=== PATIENT | male | born 2000 | race Caucasian/White ===

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

== ENCOUNTER 2019-06-14 13:24 | Emergency (ER) | payer MEDICAID ==
[~2019-06-14] VITALS: Ht 175.3 cm; Wt 65.5 kg
[2019-06-14 13:29] VITALS: BP 94/63
== END 2019-06-14 15:00 | disposition home or self-care (01) ==
LOC: ED 14:00
DX: J06.9 Acute upper respiratory infection, unspecified (principal); R06.00 Dyspnea, unspecified
CPT/HCPCS: 36415; 71046; 87806; 93005; 99284; G0475

== ENCOUNTER 2019-09-11 02:57 | Emergency (ER) | payer MEDICAID ==
[~2019-09-11] VITALS: Ht 175.3 cm; Wt 58.9 kg
[2019-09-11 03:00] VITALS: BP 125/73
== END 2019-09-11 04:00 | disposition home or self-care (01) ==
LOC: ED 03:17
DX: J20.9 Acute bronchitis, unspecified (principal); F17.210 Nicotine dependence, cigarettes, uncomplicated; R94.31 Abnormal electrocardiogram [ECG] [EKG]; R00.0 Tachycardia, unspecified
CPT/HCPCS: 71045; 93005; 99406

== ENCOUNTER 2019-10-13 14:14 | Emergency (ER) | payer MEDICAID ==
[~2019-10-13] VITALS: Ht 170.2 cm; Wt 70.0 kg
[2019-10-13] MEDS ORDERED: SODIUM CHLORIDE 0.9% 1,000ML IVBOLUS ONE (14:30)
[2019-10-13] MEDS ORDERED: NALOXONE 0.4 MG/ML, 1ML IVPush PRN (14:30)
[2019-10-13 14:47] LABS: BASOPHILS # (AUTO) 0.05 x10^3/uL (0-0.3); BASOPHILS % (AUTO) 1 % (0-1); EOSINOPHILS # (AUTO) 0.17 x10^3/uL (0-0.8); EOSINOPHILS % (AUTO) 2 % (1-7); LYMPHOCYTES # (AUTO) 3.87 x10^3/uL (1-6.1); LYMPHOCYTES % (AUTO) 50 % (22-44); MD NO; MEAN CORPUSCULAR HEMOGLOBIN 27.3 pg (27.5-34.5); MEAN CORPUSCULAR HGB CONC 33.1 g/dL (33.2-36.2); MEAN CORPUSCULAR VOLUME 82.3 fL (81-97); MEAN PLATELET VOLUME 8.2 fL (7.4-10.4); MONOCYTES % (AUTO) 9 % (2-9); NEUTROPHILS # (AUTO) 2.96 x10^3/uL (1.8-8.0); NEUTROPHILS % (AUTO) 38 % (42-75); PLATELET COUNT 245 x10^3/uL (130-400); RED CELL DISTRIBUTION WIDTH 15.5 % (9.4-14.8)
[2019-10-13 14:55] LABS: ALBUMIN 3.7 g/dL (3.4-5.0); ANION GAP 4 mmol/L (5-15); CALCIUM 8.6 mg/dL (8.5-10.1); CHLORIDE 109 mmol/L (98-107)
--- NOTE | 2019-10-13 15:02 | NUR ---
PT. WAS A STRAIGHT BACK FROM THE LOBBY. PT.'S FRIEND MARNIE BROUGHT HIM TO THE ER FOR EVALUATION OF BEING UNRESPONSIVE AND TAKING AN UNKNOWN AMOUNT OF AN UNKNOWN DRUG. PT. IS AROUSABLE TO TACTILE STIMULI AND FOLLOWS VERBAL COMMANDS. IV ACCESS ESTABLISHED AND THE PT. WAS PLACED ON THE CASTING MACHINE SET UP OPERATOR. PT.'S FRIEND SHOWED THE ED STAFF TEXT MESSAGES FROM THE PT. STATING THAT HE WANTED TO OD AND KILL HIMSELF. PCXR WAS DONE. PT. WAS UNDRESSED AND HIS BELONGINGS WERE SECURED. YAKOV CIFUENTES ASKED SECURITY TO LOCK UP THE PT.'S WALLET SECONDARY TO HIM HAVING 9 CREDIT CARDS PRESENT AND THEY REFUSED. THE ED POSTAL SUPERINTENDENT VIANCA WAS NOTIFIED. PT. IS PINK,WARM AND DRY. LUNGS ARE CTA. MM ARE MOIST WITH PULSES +2 THROUGHOUT. PT.'S ABD. IS SOFT AND FLAT WITH BS + X 4 QUADS. NO TRACK ALMONTE WERE FOUND ON THE PT. IV ACCESS WAS ESTABLISHED. PT.'S GCS IS 13 AND HE IS AROUSABLE AND FOLLOWS COMMANDS WHEN TOLD TO DO SO. REPORT TO LUNCH YAKOV KOTHARI. ALL SAFETY MEASURES ARE MAINTAINED, RN AT THE BEDSIDE AND SIDERAILS REMAIN UP X 2.
[2019-10-13 15:03] LABS: ALANINE AMINOTRANSFERASE 21 U/L (12-78); ALKALINE PHOSPHATASE 72 U/L (45-117); BILIRUBIN,TOTAL 0.8 mg/dL (0.2-1.0); CREATININE 0.85 mg/dL (0.7-1.3); TOTAL PROTEIN 7.3 g/dL (6.4-8.2)
[2019-10-13 15:04] LABS: SALICYLATE LEVEL < 1.7 mg/dL (2.8-20.0)
--- NOTE | 2019-10-13 15:14 | NUR ---
BREAK RN: LORENZOAR RPT REC'D FROM YAKOV TAVARES. PT REPOSITIONED AND CLEAN LINNENS AND PILLOW PLACED. PT ARROUSES AND IS TEARFUL, REPEATING "I'M SO SORRY, I'M SO SORRY" PT DOES NOT ANSWER ANY QUESTIONS THAT THIS RN ASKS. RN REASSURED PT THAT HE WAS SAFE IN THE HOSPITAL AND ENCOURAGED PT TO REST. PT REPOSITIONS SELF AND RTNS TO SLEEPING.
--- NOTE | 2019-10-13 16:05 | NUR ---
PT. REMAINS MONITORED AND IS RESTING WITHOUT CONCERNS. SITTER AT THE BEDSIDE.
--- NOTE | 2019-10-13 16:15 | NUR ---
PT. IS NOW A & O X 4 AND STATES HE TOOK 4 PERCOCET. PT. IS DENYING SA AT THIS TIME. PT. WAS UPDATED ON THE PLAN OF CARE.
--- NOTE | 2019-10-13 16:26 | NUR ---
RECEIVED REPORT FROM ANUSHA.
--- NOTE | 2019-10-13 16:28 | NUR ---
PT. PULLED OUT HIS IV. IV ACCESS WAS REESTABLISHED AND HIS BOLUS IS INFUSING. PT. REMAINS COOPERATIVE AND A & O X 4 WITH A GCS OF 15.
--- NOTE | 2019-10-13 16:29 | NUR ---
REPORT TO MARCI NAGY.
--- NOTE | 2019-10-13 17:00 | NUR ---
PT TRANSFERRED TO FROM TR04, UPRIGHT ON GURNEY AWAKE, CALM & COMFORTABLE, RESPONDS APPROP TO STAFF, NAD, FRIEND AT BS, NO NEEDS AT THIS TIME, PT IN SAFE ENVIRONMENT, SITTER IN VIEW.
[2019-10-13 17:57] VITALS: BP 118/72
--- NOTE | 2019-10-13 18:01 | NUR ---
PT REMAINS UPRIGHT ON GURNEY AWAKE, CALM, COMFORTABLE & COOPERATIVE, RESPONDS APPROP TO STAFF, NAD, NO NEEDS AT THIS TIME, PT REMAINS IN SAFE ENVIRONMENT, SITTER IN VIEW.
--- NOTE | 2019-10-13 18:49 | NUR ---
REPORT FROM FREDA NAGY.
--- NOTE | 2019-10-13 18:49 | NUR ---
REPORT GIVEN TO DANIAL
--- NOTE | 2019-10-13 18:54 | NUR ---
PT RESTING ON GURNEY, EASILY WOKEN TO VERBAL COMMAND, PT REPORTS HE WANT TO LEAVE, DENIES SI AND SA THOUGHTS AT THIS TIME, PT'S BEHAVIOR AND RESPONSES ARE EVASIVE.
[2019-10-13 19:03] LABS: AMPHETAMINE SCREEN, URINE Positive (Negative); BARBITURATE SCREEN, URINE Negative (Negative); BENZODIAZEPINE SCREEN, URINE Negative (Negative); CANNABINOID SCREEN, URINE Negative (Negative); COCAINE SCREEN, URINE Negative (Negative); METHADONE SCREEN, URINE Negative (Negative); OPIATE SCREEN, URINE Positive (Negative)
--- NOTE | 2019-10-13 19:22 | NUR ---
SITTER AT DOORWAY FOR SAFETY MONITORING, ROOM IS SECURE.
--- NOTE | 2019-10-13 20:18 | NUR ---
PT REPORTS "I'VE PROBABLY HAVE HAD THOUGTHS OF HURTING MYSELF" DENIES CURRENT THOUGTHS. SITTER AT DOORWAY, SAFETY PRECAUTIONS IN PLACE.
--- NOTE | 2019-10-13 20:34 | NUR ---
ZOHREH RN:DENIAL FROM [facility] RECEIVED. PACKET FAXED TO ROSALEE NATH, CHARISSA AND HELENA GREGORIO.
--- NOTE | 2019-10-13 21:15 | NUR ---
Patient accepted by Dr. Navarrete at [facility]. RTG to their facility now. Has medicaid [place] so will call [facility] now and place patient in [facility] until they receive call from [facility].
--- NOTE | 2019-10-13 21:26 | NUR ---
REPORT GIVEN TO PRITESH AT [facility]. PENDING TRANSPORT.
--- NOTE | 2019-10-13 21:34 | NUR ---
[facility] transport set up with Peter from [facility]. Patient in will call at this time. Awaiting [employer] authorization, but besides the [employer] auth patient is good to go to [facility].
--- NOTE | 2019-10-13 21:35 | NUR ---
Per Peter at [facility] they do not require [facility] authorization for psych transports and therefore patients ETA is 2215, but if they have an ambulance earlier they will send it sooner.
--- NOTE | 2019-10-13 22:38 | NUR ---
LATE ENTRY: 2100 CALL FROM ANUSHA HERNANDEZ REPORTS SHE IS PT'S MOM, THIS RN VERIFIED INFORMATION COULD BE DISCUSSED WITH ANUSHA, LUCIUS STATES OKAY TO SPEAK TO ANUSHA ABOUT HIS MEDICAL STATUS. ANUSHA PHONE NUMBER [phone].
--- NOTE | 2019-10-13 22:40 | NUR ---
CALL TO ANUSHA PT'S MOTHER PER PT REQUEST TO LET HER KNOW HE WILL BE TRANSFERRED TO [facility].
--- NOTE | 2019-10-13 22:54 | NUR ---
Called [facility] trying to obtain [facility] auth code and per Andrew at [facility] dispatch they still do not have [employer] auth code. Will call [facility] back later and try and obtain this auth code.
--- NOTE | 2019-10-14 00:22 | NUR ---
Again attempted to contact [facility] for an auth code from [facility] and Zaira states they have not been contacted by [facility], but she said she will put a note in patients chart and they will call with the auth code when they receive it.
== END 2019-10-13 22:22 ==
LOC: ED 14:31
DX: T14.91XA Suicide attempt, initial encounter (principal); T40.602A Poisoning by unspecified narcotics, intentional self-harm, initial encounter; I49.8 Other specified cardiac arrhythmias; X83.8XXA Intentional self-harm by other specified means, initial encounter; Y92.89 Other specified places as the place of occurrence of the external cause; Y93.89 Activity, other specified; Y99.8 Other external cause status
CPT/HCPCS: 36415; 71045; 80053; 80307; 85025; 93005; 99285; J7030

== ENCOUNTER 2019-10-19 23:13 | Emergency (ER) | payer MEDICAID ==
[~2019-10-19] VITALS: Ht 172.7 cm; Wt 66.0 kg
--- NOTE | 2019-10-19 23:15 | NUR ---
Late entry from 2314: Patient BIB [facility] for OD on GHB. Per EMS, patient's bf witnessed him taking a "shit ton" of GHB. Patient is in restraints from EMS; patient transferred to [facility] and placed in four point "hard restraints." Patient is a danger to self.
[2019-10-19] MEDS ORDERED: ZIPRASIDONE 20 MG INJ IM ONE (23:39)
[2019-10-20] MEDS ORDERED: ZIPRASIDONE 20 MG INJ IM ONE
[2019-10-20 00:18] LABS: BASOPHILS # (AUTO) 0.06 x10^3/uL (0-0.3); BASOPHILS % (AUTO) 1 % (0-1); EOSINOPHILS # (AUTO) 0.06 x10^3/uL (0-0.8); EOSINOPHILS % (AUTO) 1 % (1-7); LYMPHOCYTES # (AUTO) 2.06 x10^3/uL (1-6.1); LYMPHOCYTES % (AUTO) 17 % (22-44); MD NO; MEAN CORPUSCULAR HEMOGLOBIN 27.2 pg (27.5-34.5); MEAN CORPUSCULAR HGB CONC 32.9 g/dL (33.2-36.2); MEAN CORPUSCULAR VOLUME 82.8 fL (81-97); MEAN PLATELET VOLUME 7.7 fL (7.4-10.4); MONOCYTES # (AUTO) 0.87 x10^3/uL (0-1.4); MONOCYTES % (AUTO) 7 % (2-9); NEUTROPHILS # (AUTO) 8.95 x10^3/uL (1.8-8.0); NEUTROPHILS % (AUTO) 75 % (42-75); PLATELET COUNT 330 x10^3/uL (130-400); RED BLOOD COUNT 5.11 x10^6/uL (4.38-5.82); RED CELL DISTRIBUTION WIDTH 15.9 % (9.4-14.8)
--- NOTE | 2019-10-20 00:30 | NUR ---
BREAK RN: PT SLEEPING, RESPIRATIONS EVEN AND UNLABORED. ALL VITALS STABLE.
[2019-10-20 00:31] LABS: ALBUMIN 4.1 g/dL (3.4-5.0); ANION GAP 8 mmol/L (5-15); CALCIUM 8.8 mg/dL (8.5-10.1); CHLORIDE 109 mmol/L (98-107)
[2019-10-20 00:37] LABS: ALANINE AMINOTRANSFERASE 31 U/L (12-78); ALKALINE PHOSPHATASE 65 U/L (45-117); BILIRUBIN,TOTAL 1.9 mg/dL (0.2-1.0); CREATININE 0.93 mg/dL (0.7-1.3); TOTAL PROTEIN 7.5 g/dL (6.4-8.2); TROPONIN I < 0.015 ng/mL (0.000-0.045)
[2019-10-20 00:46] LABS: SALICYLATE LEVEL < 1.7 mg/dL (2.8-20.0)
--- NOTE | 2019-10-20 00:46 | NUR ---
TP RN: sobeida Samaniego at [facility], pt denied
[2019-10-20 00:58] VITALS: BP 119/79
[2019-10-20] MEDS ORDERED: SODIUM CHLORIDE 0.9% 1,000 ML IV ONE (02:08)
--- NOTE | 2019-10-20 02:31 | NUR ---
Patient awoke, AAOx4. Denies SI; states he took too much GHB by accident. Patient to be discharged.
--- NOTE | 2019-10-20 02:45 | NUR ---
Discharge instructions given. All questions and concerns addressed. Patient ambulatory with a steady gait. Belongings with patient.
== END 2019-10-20 02:46 | disposition home or self-care (01) ==
LOC: ED 23:43 → EDIP 10-20 02:35 → UNDOADMIN 10-20 02:35 → ED 10-20 02:46
DX: T41.291A Poisoning by other general anesthetics, accidental (unintentional), initial encounter (principal); R41.82 Altered mental status, unspecified; F15.121 Other stimulant abuse with intoxication delirium; G92 Toxic encephalopathy; I51.7 Cardiomegaly; Z72.9 Problem related to lifestyle, unspecified; Z21 Asymptomatic human immunodeficiency virus [HIV] infection status; Y92.9 Unspecified place or not applicable
CPT/HCPCS: 36415; 80053; 80307; 84443; 84484; 85025; 93005; 96372; 99291; J3486